=== PATIENT | male | born 1980 | race Caucasian/White ===

== ENCOUNTER 2018-12-24 17:55 | Emergency (ER) | payer SELFPAY ==
--- NOTE | 2018-12-24 18:30 | RAD ---
FINGERS LEFT HAND 3 VIEWS: Date: 12/24/18 HISTORY: Injury to index finger. FINDINGS: There is a transverse displaced fracture involving the proximal aspect of the proximal phalanx of the index finger. Fracture may be slightly comminuted and there appears to be involvement of the articul ar surface. IMPRESSION: Fracture proximal phalanx of index finger. POS: AGW
[2018-12-24] MEDS ORDERED: HYDROcodone/Acetaminophen 5/325 mg Tablet ONE (18:49)
[2018-12-24] MEDS ORDERED: Ibuprofen 800 MG TAB ONE (18:50)
== END 2018-12-24 19:00 | disposition home or self-care (01) ==
LOC: MADERS 17:55
DX: S62.611A Displaced fracture of proximal phalanx of left index finger, initial encounter for closed fracture (principal); W22.8XXA Striking against or struck by other objects, initial encounter
CPT/HCPCS: 26725; Q4049

== ENCOUNTER 2019-03-04 19:31 | Emergency (ER) | payer SELFPAY ==
[~2019-03-04 19:31] MED LIST: Sodium Chloride Irrig Solution 250 ML BOT ONE
[2019-03-04] MEDS ORDERED: Lidocaine 2% 20 ml MDV ONE (20:11)
[2019-03-04] MEDS ORDERED: Bacitracin 1 PK ONE (21:36)
[2019-03-04] MEDS ORDERED: HYDROcodone/Acetaminophen 10/325 mg Tablet ONE (21:36)
--- NOTE | 2019-03-04 21:36 | RAD ---
XR Finger(s) Lt Min 2 View: 03/04/2019 9:04 PM CLINICAL INDICATION: Laceration COMPARISON: None. FINDINGS: Comminuted distal phalangeal fracture of the thumb, involving the tuft with associated displacement. Overlying soft tissue prominence. IMPRESSION: Comminuted fracture of the thumb distal phalanx.
== END 2019-03-04 22:20 | disposition home or self-care (01) ==
LOC: MADERS 19:31
DX: S62.522A Displaced fracture of distal phalanx of left thumb, initial encounter for closed fracture (principal); S61.012A Laceration without foreign body of left thumb without damage to nail, initial encounter; W23.0XXA Caught, crushed, jammed, or pinched between moving objects, initial encounter
CPT/HCPCS: 12002; J2001

== ENCOUNTER 2021-08-14 21:04 | Emergency (ER) | payer SELFPAY | END 2021-08-14 22:22 | disposition left against medical advice (07) | LOC: MADERS 21:04 | DX: Z53.21 Procedure and treatment not carried out due to patient leaving prior to being seen by health care provider (principal) ==

== ENCOUNTER 2021-08-31 08:55 | Outpatient (CLI) | payer BC | END 2021-08-31 08:56 | disposition home or self-care (01) | LOC: MADULT 08:55 | PROVIDERS: ATTEND Family Medicine | DX: K76.0 Fatty (change of) liver, not elsewhere classified (principal) | CPT/HCPCS: 76705 ==

== ENCOUNTER 2024-12-20 12:00 | Emergency (ER) | payer BC | END 2024-12-20 13:10 | disposition home or self-care (01) | LOC: MADERS 12:00 | DX: S63.502A Unspecified sprain of left wrist, initial encounter (principal); S56.912A Strain of unspecified muscles, fascia and tendons at forearm level, left arm, initial encounter; W20.8XXA Other cause of strike by thrown, projected or falling object, initial encounter | CPT/HCPCS: 99283 ==